=== PATIENT | male | born 1970 | race African-American/Black ===

== ENCOUNTER → 2017-08-02 | Outpatient (CLI) | payer MEDICAID ==
[~2017-08-02] MED LIST: CHLO10SU; PROZ40CA; PROZ40CA OR; RISP3TAB16 OR; SERO400T; SERO400T OR; VALT500T; VITA500T
== END ==
LOC: M OUTALCOH 08:12
PROVIDERS: ATTEND Psychiatry & Neurology Psychiatry
DX: Z13.9 Encounter for screening, unspecified (principal); F14.10 Cocaine abuse, uncomplicated

== ENCOUNTER 2017-09-03 09:00 | Outpatient (RCR) | payer MEDICAID | END 2017-09-16 | LOC: M OUTALCOH 09:00 | PROVIDERS: ATTEND Psychiatry & Neurology Psychiatry | DX: F14.10 Cocaine abuse, uncomplicated (principal) ==

== ENCOUNTER 2017-09-19 16:20 | Emergency (ER) | payer MEDICAID, OTHER ==
[~2017-09-19] VITALS: Ht 177.8 cm; Wt 86.8 kg
[2017-09-19 16:21] VITALS: BP 123/79
[2017-09-19] MEDS ORDERED: HYDR-3713 PO (16:35)
[2017-09-19] MEDS ORDERED: IBUP-1114 PO (16:35)
[2017-09-19] MEDS ORDERED: BUPIVACAINE HCL 0.5% 10 ML VIAL SC ONE (16:45)
[2017-09-19] MEDS ORDERED: LIDOCAINE 2% MDV 20 ML VIAL SC ONE (16:45)
[2017-09-19] MEDS ORDERED: AUGMENTIN 875 MG TAB PO ONE (16:45)
[2017-09-19] MEDS ORDERED: ACETAMINOPH W/CODEINE #3 TAB UD PO ONE (17:00)
[2017-09-19] MEDS ORDERED: NAPROXEN 250 MG TAB PO ONE (17:00)
[2017-09-19] MEDS ORDERED: AUGM875T28 PO (17:09)
== END 2017-09-19 17:25 | disposition home or self-care (01) ==
LOC: M ED 16:20
DX: K08.89 Other specified disorders of teeth and supporting structures (principal)

== ENCOUNTER 2017-09-23 16:00 | Outpatient (RCR) | payer MEDICAID | END 2017-10-17 | LOC: M OUTALCOH 09-30 16:00 | DX: F14.10 Cocaine abuse, uncomplicated (principal) ==

== ENCOUNTER 2017-10-28 14:12 | Outpatient (RCR) | payer MEDICAID | END 2017-11-17 | LOC: M OUTALCOH 11-04 16:00 | DX: F14.10 Cocaine abuse, uncomplicated (principal) ==

== ENCOUNTER 2017-11-19 15:33 | Outpatient (RCR) | payer MEDICAID | END 2017-12-15 | LOC: M OUTALCOH 15:33 | DX: F14.10 Cocaine abuse, uncomplicated (principal) ==

== ENCOUNTER → 2017-11-20 | Outpatient (CLI) | payer MEDICAID ==
[2017-11-20 13:10] LABS: INR 0.91; PROTHROMBIN TIME 12.3 SECONDS (12.4-14.5)
[2017-11-20 13:20] LABS: ALBUMIN/GLOBULIN RATIO 1.14 (1.00-1.93); ALKALINE PHOSPHATASE 64 U/L (45-117); ALT/SGPT 21 U/L (12-78); ANION GAP 3 MEQ/L (8-16); AST/SGOT 19 U/L (7-37); BILIRUBIN,TOTAL 0.4 MG/DL (0.2-1.0); BLOOD UREA NITROGEN 13 MG/DL (7-18); CALCIUM LEVEL 9.5 MG/DL (8.5-10.1); CARBON DIOXIDE LEVEL 32 MEQ/L (21-32); CHLORIDE LEVEL 107 MEQ/L (98-107); CREATININE FOR GFR 1.29 MG/DL (0.70-1.30); GLOMERULAR FILTRATION RATE > 60.0 (>60); GLUCOSE, FASTING 91 MG/DL (70-100); POTASSIUM SERUM 4.4 MEQ/L (3.5-5.1); SODIUM LEVEL 142 MEQ/L (136-145); TOTAL PROTEIN 7.5 GM/DL (6.4-8.2); URIC ACID 3.9 MG/DL (3.5-7.2)
== END ==
LOC: M LAB 12:35
DX: F10.21 Alcohol dependence, in remission (principal); M25.571 Pain in right ankle and joints of right foot
CPT/HCPCS: 73120

== ENCOUNTER 2017-12-17 15:19 | Outpatient (RCR) | payer MEDICAID | END 2018-01-15 | LOC: M OUTALCOH 15:19 | DX: F14.10 Cocaine abuse, uncomplicated (principal) ==

== ENCOUNTER 2017-12-31 18:19 | Emergency (ER) | payer OTHER, MEDICAID | END 2017-12-31 20:41 | disposition home or self-care (01) | LOC: M ED 18:19 | DX: S80.02XA Contusion of left knee, initial encounter (principal); X58.XXXA Exposure to other specified factors, initial encounter; Y92.59 Other trade areas as the place of occurrence of the external cause; Y99.0 Civilian activity done for income or pay; F17.210 Nicotine dependence, cigarettes, uncomplicated; Z79.2 Long term (current) use of antibiotics; Z79.899 Other long term (current) drug therapy | CPT/HCPCS: 99284 ==

== ENCOUNTER 2018-01-26 11:06 | Outpatient (RCR) | payer MEDICAID | END 2018-02-14 | LOC: M OUTALCOH 11:06 | DX: F14.10 Cocaine abuse, uncomplicated (principal) ==

== ENCOUNTER 2018-03-01 09:42 | Emergency (ER) | payer OTHER, MEDICAID ==
[2018-03-01] MEDS: KETOROLAC TROMETHAMINE 10 MG TAB PO (10:24)
== END 2018-03-01 11:40 | disposition home or self-care (01) ==
LOC: M ED 09:42
DX: S61.215A Laceration without foreign body of left ring finger without damage to nail, initial encounter (principal); S60.222A Contusion of left hand, initial encounter; S63.275A Dislocation of unspecified interphalangeal joint of left ring finger, initial encounter; W27.8XXA Contact with other nonpowered hand tool, initial encounter; Y92.009 Unspecified place in unspecified non-institutional (private) residence as the place of occurrence of the external cause; M65.342 Trigger finger, left ring finger; G56.01 Carpal tunnel syndrome, right upper limb; M77.8 Other enthesopathies, not elsewhere classified; F31.9 Bipolar disorder, unspecified; F41.9 Anxiety disorder, unspecified; F17.200 Nicotine dependence, unspecified, uncomplicated
CPT/HCPCS: 73130

== ENCOUNTER → 2018-07-25 | Outpatient (CLI) | payer MEDICAID | LOC: M OUTALCOH 12:34 | DX: Z13.89 Encounter for screening for other disorder (principal); F14.20 Cocaine dependence, uncomplicated; F11.20 Opioid dependence, uncomplicated ==

== ENCOUNTER 2018-08-01 09:12 | Emergency (ER) | payer MEDICAID | END 2018-08-01 10:30 | disposition home or self-care (01) | LOC: M ED 09:12 | DX: M25.552 Pain in left hip (principal); F31.9 Bipolar disorder, unspecified; F17.210 Nicotine dependence, cigarettes, uncomplicated; Z79.899 Other long term (current) drug therapy | CPT/HCPCS: 73502 ==

== ENCOUNTER 2018-08-01 09:32 | Outpatient (RCR) | payer MEDICAID | END 2018-08-17 | LOC: M OUTALCOH 08-08 09:00 | DX: F10.20 Alcohol dependence, uncomplicated (principal); F14.20 Cocaine dependence, uncomplicated; F12.10 Cannabis abuse, uncomplicated ==

== ENCOUNTER 2018-08-22 09:47 | Emergency (ER) | payer MEDICAID ==
[2018-08-22 11:11] LABS: HEMATOCRIT 44.6 % (42.0-52.0); HEMOGLOBIN 13.9 g/dl (13.5-17.5); MEAN CORPUSCULAR HEMOGLOBIN 27.5 pg (27.0-33.0); MEAN CORPUSCULAR HGB CONC 31.2 g/dl (32.0-36.5); MEAN CORPUSCULAR VOLUME 88.1 fl (80.0-96.0); PLATELET COUNT, AUTOMATED 241 10^3/uL (150-450); RED BLOOD COUNT 5.06 10^6/uL (4.30-6.10); RED CELL DISTRIBUTION WIDTH 13.2 % (11.5-14.5); WHITE BLOOD COUNT 3.7 10^3/uL (4.0-10.0)
[2018-08-22 11:49] LABS: ACETAMINOPHEN LEVEL < 2.0 UG/ML (10.0-30.0); ALBUMIN 3.7 GM/DL (3.2-5.2); ALBUMIN/GLOBULIN RATIO 1.16 (1.00-1.93); ALKALINE PHOSPHATASE 77 U/L (45-117); ALT/SGPT 21 U/L (12-78); ANION GAP 5 MEQ/L (8-16); AST/SGOT 18 U/L (7-37); BILIRUBIN,DIRECT < 0.1 MG/DL (0.0-0.2); BILIRUBIN,TOTAL 0.3 MG/DL (0.2-1.0); BLOOD UREA NITROGEN 11 MG/DL (7-18); CALCIUM LEVEL 9.1 MG/DL (8.5-10.1); CARBON DIOXIDE LEVEL 30 MEQ/L (21-32); CHLORIDE LEVEL 104 MEQ/L (98-107); CREATININE FOR GFR 1.47 MG/DL (0.70-1.30); ETHYL ALCOHOL (ETHANOL) < 0.003 % (0.000-0.010); GLOMERULAR FILTRATION RATE > 60.0 (>60); GLUCOSE, FASTING 107 MG/DL (70-100); POTASSIUM SERUM 4.5 MEQ/L (3.5-5.1); SALICYLATE LEVEL 3.3 MG/DL (5.0-30.0); SODIUM LEVEL 139 MEQ/L (136-145); THYROID STIMULATING HORMONE 0.549 uIU/ML (0.358-3.740); TOTAL PROTEIN 6.9 GM/DL (6.4-8.2)
[2018-08-22 13:36] LABS: AMPHETAMINES LEVEL URINE NEGATIVE (NEGATIVE); BARBITURATES URINE NEGATIVE (NEGATIVE); BENZODIAZEPINES URINE NEGATIVE (NEGATIVE); CANNABINOIDS URINE POSITIVE (NEGATIVE); COCAINE METABOLITE URINE POSITIVE (NEGATIVE); METHADONE URINE NEGATIVE (NEGATIVE); OPIATES URINE NEGATIVE (NEGATIVE); PHENCYCLIDINE URINE NEGATIVE (NEGATIVE)
== END 2018-08-23 03:38 | disposition short-term general hospital (02) ==
LOC: M ED 08-23 03:38
DX: F33.9 Major depressive disorder, recurrent, unspecified (principal); R45.851 Suicidal ideations; F19.10 Other psychoactive substance abuse, uncomplicated; Z79.899 Other long term (current) drug therapy; F17.210 Nicotine dependence, cigarettes, uncomplicated
CPT/HCPCS: 93005

== ENCOUNTER 2018-09-05 14:39 | Outpatient (RCR) | payer MEDICAID | END 2018-09-16 | LOC: M OUTALCOH 14:39 | DX: F10.20 Alcohol dependence, uncomplicated (principal); F14.20 Cocaine dependence, uncomplicated; F12.10 Cannabis abuse, uncomplicated ==

== ENCOUNTER 2018-10-31 13:52 | Emergency (ER) | payer MEDICAID, OTHER ==
[~2018-10-31] VITALS: Ht 177.8 cm; Wt 86.4 kg
[~2018-10-31 13:52] MED LIST changes: +ABIL1TAB11 PO; +AUGM875T28 PO; +CLON-412 PO; +CLON0.2T PO; +FLUO40CA PO; +HYDR-3363 PO; +HYDR-3713 PO; +IBUP-1022 PO; +IBUP-1114 PO; +KETO10TAB PO; +NALT50TA4 PO; +NAPR-885 PO; +NICO4GUM2 PO; +PROZ20CA11 PO; +QUET1TAB10 PO; +ROBA500T PO; +SERO400T PO; +VITA200038 PO; +naltrexone
[2018-10-31] MEDS ORDERED: HYDR50TA70 (14:01)
[2018-10-31] MEDS ORDERED: BUSP5TA (14:01)
[2018-10-31] MEDS ORDERED: BUPR300T34 (14:01)
[2018-10-31 14:33] LABS: BASO % 0.2 % (0.0-1.0); EOS # 0.2 10^3/uL (0.0-0.50); EOS % 5.2 % (0.0-3.0); HEMOGLOBIN 14.5 g/dl (13.5-17.5); LYMPH # 1.6 10^3/uL (1.5-4.5); LYMPH % 39.9 % (24.0-44.0); MEAN CORPUSCULAR HEMOGLOBIN 27.4 pg (27.0-33.0); MEAN CORPUSCULAR HGB CONC 31.5 g/dl (32.0-36.5); MEAN CORPUSCULAR VOLUME 86.8 fl (80.0-96.0); MONO # 0.5 10^3/uL (0.0-0.8); MONO % 11.1 % (0.0-5.0); NEUTROPHILS # 1.8 10^3/uL (1.8-7.7); NEUTROPHILS % 43.6 % (36.0-66.0); PLATELET COUNT, AUTOMATED 256 10^3/uL (150-450); WHITE BLOOD COUNT 4.1 10^3/uL (4.0-10.0)
[2018-10-31] MEDS ORDERED: NS 1,000 ML IV ONE (14:45)
--- NOTE | 2018-10-31 14:53 | ECGEPIP ---
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
[2018-10-31 15:08] LABS: OSMOLALITY SERUM 297 MOSM/KG (275-295)
[2018-10-31 15:16] LABS: ACETAMINOPHEN LEVEL < 2.0 UG/ML (10.0-30.0); ALBUMIN 3.5 GM/DL (3.2-5.2); ALT/SGPT 18 U/L (12-78); BILIRUBIN,DIRECT < 0.1 MG/DL (0.0-0.2); BILIRUBIN,TOTAL 0.2 MG/DL (0.2-1.0); BLOOD UREA NITROGEN 11 MG/DL (7-18); CALCIUM LEVEL 9.1 MG/DL (8.5-10.1); CARBON DIOXIDE LEVEL 27 MEQ/L (21-32); CHLORIDE LEVEL 104 MEQ/L (98-107); CPK CREATINE PHOSPHOKINASE 271 U/L (39-308); CREATININE FOR GFR 1.29 MG/DL (0.70-1.30); ETHYL ALCOHOL (ETHANOL) < 0.003 % (0.000-0.010); GLOMERULAR FILTRATION RATE > 60.0 (>60); GLUCOSE, FASTING 78 MG/DL (70-100); MB/CK RELATIVE INDEX 0.52 (< OR =4); POTASSIUM SERUM 4.4 MEQ/L (3.5-5.1); SALICYLATE LEVEL 3.2 MG/DL (5.0-30.0); SODIUM LEVEL 141 MEQ/L (136-145); TOTAL PROTEIN 6.9 GM/DL (6.4-8.2); TROPONIN I < 0.02 NG/ML (< 0.10)
--- NOTE | 2018-10-31 15:19 | REP ---
Portable chest x-ray: Single view. History: Altered mental status. Findings: EKG monitoring electrodes overlie the chest. Heart size is normal. Lungs are well inflated and clear. Pleural angles are sharp. Impression: No active disease. Electronically Signed by Eliseo Gallegos MD 10/31/2018 03:11 P
[2018-10-31 16:07] VITALS: BP 133/89
[2018-10-31 16:38] LABS: AMPHETAMINES LEVEL URINE NEGATIVE (NEGATIVE); BARBITURATES URINE NEGATIVE (NEGATIVE); BENZODIAZEPINES URINE NEGATIVE (NEGATIVE); CANNABINOIDS URINE POSITIVE (NEGATIVE); COCAINE METABOLITE URINE POSITIVE (NEGATIVE); METHADONE URINE NEGATIVE (NEGATIVE); OPIATES URINE NEGATIVE (NEGATIVE); PHENCYCLIDINE URINE NEGATIVE (NEGATIVE)
== END 2018-10-31 16:15 | disposition home or self-care (01) ==
LOC: M ED 13:52
DX: E86.9 Volume depletion, unspecified (principal)
CPT/HCPCS: 36415; 71045; 80048; 80076; 80307; 81001; 82140; 82550; 82553; 83605; 83930; 84443; 85025; 93005; 93041; 96360; 96361; 99284; G0480

== ENCOUNTER → 2018-11-07 | Outpatient (CLI) | payer OTHER ==
[~2018-11-07] MED LIST changes: +BUPR300T34; +BUSP5TA; +HYDR50TA70
== END ==
LOC: M OUTALCOH 07:56
PROVIDERS: ATTEND Psychiatry & Neurology Psychiatry
DX: F10.20 Alcohol dependence, uncomplicated (principal)

== ENCOUNTER → 2018-11-09 | Outpatient (REF) | payer OTHER ==
[2018-11-09 12:10] LABS: FREE T3 2.7 PG/ML (2.2-4.0); THYROID STIMULATING HORMONE 0.357 uIU/ML (0.358-3.740)
[2018-11-09 13:16] LABS: CHLAMYDIA DNA AMPLIFICATION NEGATIVE (NEGATIVE); GC DNA AMPLIFICATION NEGATIVE (NEGATIVE)
[2018-11-09 15:26] LABS: HIV 1&2 SCREEN CENTAUR NEGATIVE (NEGATIVE)
== END ==
LOC: M SFHCPLAZ 09:42
PROVIDERS: ATTEND Family Medicine
DX: Z20.2 Contact with and (suspected) exposure to infections with a predominantly sexual mode of transmission (principal); R79.89 Other specified abnormal findings of blood chemistry

== ENCOUNTER 2018-11-16 07:48 | Outpatient (RCR) | payer MEDICAID | END 2018-11-17 | LOC: M OUTALCOH 07:48 | PROVIDERS: ATTEND Psychiatry & Neurology Psychiatry | DX: F10.20 Alcohol dependence, uncomplicated (principal); F14.20 Cocaine dependence, uncomplicated; F12.10 Cannabis abuse, uncomplicated ==

== ENCOUNTER 2018-12-12 15:43 | Outpatient (RCR) | payer MEDICAID | END 2018-12-15 | LOC: M OUTALCOH 15:43 | PROVIDERS: ATTEND Psychiatry & Neurology Psychiatry | DX: F10.20 Alcohol dependence, uncomplicated (principal); F14.20 Cocaine dependence, uncomplicated; F12.10 Cannabis abuse, uncomplicated ==

== ENCOUNTER 2019-01-03 08:00 | Outpatient (RCR) | payer MEDICAID | END 2019-01-15 | LOC: M OUTALCOH 08:00 | PROVIDERS: ATTEND Psychiatry & Neurology Psychiatry | DX: F10.20 Alcohol dependence, uncomplicated (principal); F14.20 Cocaine dependence, uncomplicated; F12.10 Cannabis abuse, uncomplicated ==